=== PATIENT | female | born 1960 | race Caucasian/White ===

== ENCOUNTER 2016-12-14 06:45 | Emergency (ER) | payer OTHER ==
[~2016-12-14] VITALS: Ht 162.6 cm; Wt 70.0 kg
[2016-12-14] MEDS ORDERED: SOD CHLORIDE 0.9% 1,000 ML IV STA (06:47)
[2016-12-14] MEDS ORDERED: ONDANSETRON 4 MG INJ IV STA (06:47)
[2016-12-14 06:50] VITALS: Ht 162.6 cm; Wt 70.0 kg
[2016-12-14 07:22] LABS: BASOPHILS % 0.4 % (0.0-2.0); EOSINOPHILS # 0.1 10^3/ul (0.0-0.5); EOSINOPHILS % 2.3 % (0.0-7.0); HEMATOCRIT 26.3 % (37.0-47.0); HEMOGLOBIN 7.9 g/dl (12.0-16.0); LYMPHOCYTES # 1.3 10^3/ul (0.8-2.9); LYMPHOCYTES % 26.5 % (15.0-51.0); MEAN CORPUSCULAR HEMOGLOBIN 21.4 pg (29.0-33.0); MEAN CORPUSCULAR VOLUME 71.3 fl (82.0-101.0); MEAN PLATELET VOLUME 10.6 fl (7.4-10.4); MONOCYTE # 0.5 10^3/ul (0.3-0.9); MONOCYTES % 10.1 % (0.0-11.0); NEUTROPHIL # 2.9 10^3/ul (1.6-7.5); NEUTROPHILS % 60.3 % (39.0-77.0); PLATELET COUNT 264 10^3/UL (140-415); RED BLOOD COUNT 3.69 10^6/ul (4.20-5.40); RED CELL DISTRIBUTION WIDTH 15.1 % (11.5-14.5); WHITE BLOOD COUNT 4.9 10^3/ul (4.8-10.8)
[2016-12-14 07:46] LABS: ANION GAP 19 (8-16); BLOOD UREA NITROGEN 19 mg/dl (7-20); CALCIUM 9.2 mg/dl (8.4-10.2); CARBON DIOXIDE 24 mmol/L (21-31); CHLORIDE 106 mmol/L (97-110); CREATININE 0.77 mg/dl (0.44-1.00); GLUCOSE 157 mg/dl (70-220); POTASSIUM 3.9 mmol/L (3.5-5.1); SODIUM 145 mmol/L (135-144)
[2016-12-14 08:02] LABS: TROPONIN-I < 0.012 ng/ml (0.00-0.12)
--- NOTE | 2016-12-14 08:08 | ERA ---
ER Documentation Chief Complaint Date/Time DATE: 12/14/16 TIME: 646 Chief Complaint syncopial episode at the gym no ko HPI 56-year-old female presents by ambulance after a syncopal episode. Patient was in her usual state of health until this morning at which time she went to the gym for the first time in some time. She states she worked out briefly, went to the sauna briefly. She then had a syncopal episode. She denied chest pain, palpitations, headache associated with the loss of consciousness. She reported no hemoptysis, pleurisy or shortness of breath. Her syncopal episode was witnessed and she had no seizure activity. 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 Pre-hospital vital signs were reviewed. Pre-hospital diagnostic tests were reviewed. Upon arrival, patient complains of generalized dizziness, but no other acute complaints. ROS All systems reviewed and are negative except as per history of present illness. PMhx/Soc History of Surgery: No Hx Neurological Disorder: No Hx Cardiac Disorders: Yes (svt with ablation) Hx Psychiatric Problems: No Hx Miscellaneous Medical Probl: No Hx Alcohol Use: No Hx Substance Use: No Hx Tobacco Use: No Smoking Status: Never smoker FmHx Noncontributory for chief complaint Physical Exam Vitals Vital Signs Date Time Temp Pulse Resp B/P Pulse Ox O2 Delivery O2 Flow Rate FiO2 12/14/16 07:00 68 12 100/61 97 Room Air 12/14/16 06:50 98.1 70 14 100/58 97 Physical Exam GENERAL: Patient is pale but otherwise in no distress HEENT: Pupils equal, round, and reactive to light. EOMI. There is no scleral icterus. NECK: C-spine is soft and supple, there is no meningismus. There is no cervical lymphadenopathy. LUNGS: Clear to auscultation bilaterally. There are no rales, wheezes or rhonchi. HEART: Regular rate and rhythm, no murmurs, clicks, rubs or gallops. ABDOMEN: Soft, non-tender, non-distended. There are bowel sounds in all four quadrants. No rebound or guarding. EXTREMITIES: There is no peripheral cyanosis or edema. No focal swelling or erythema. NEURO: The patient moves all four extremities with 5/5 strength. Cranial nerves II - XII are intact. Normal gait. Alert and oriented SKIN: There is no apparent rash or petechiae. HEME/LYMPHATIC: There is no evidence of excessive bruising or lymphedema. PSYCHIATRIC: The patient does not appear anxious or depressed. Result Diagram: 12/14/1670412/14/16704 Results 24 hrs Laboratory Tests Test 12/14/16 07:05 White Blood Count 4.910^3/ul Red Blood Count 3.6910^6/ul Hemoglobin 7.9g/dl Hematocrit 26.3% Mean Corpuscular Volume 71.3fl Mean Corpuscular Hemoglobin 21.4pg Mean Corpuscular Hemoglobin Concent 30.0g/dl Red Cell Distribution Width 15.1% Platelet Count 33758^3/UL Mean Platelet Volume 10.6fl Neutrophils % 60.3% Lymphocytes % 26.5% Monocytes % 10.1% Eosinophils % 2.3% Basophils % 0.4% Nucleated Red Blood Cells % 0.0/100WBC Neutrophils # 2.910^3/ul Lymphocytes # 1.310^3/ul Monocytes # 0.510^3/ul Eosinophils # 0.110^3/ul Basophils # 0.010^3/ul Nucleated Red Blood Cells # 0.010^3/ul Sodium Level 145mmol/L Potassium Level 3.9mmol/L Chloride Level 106mmol/L Carbon Dioxide Level 24mmol/L Anion Gap 19 Blood Urea Nitrogen 19mg/dl Creatinine 0.77mg/dl Glucose Level 157mg/dl Calcium Level 9.2mg/dl Troponin I < 0.012ng/ml Current Medications Medications (Trade) Dose Ordered Sig/Varun Route PRN Reason Start Time Stop Time Status Last Admin Dose Admin Sodium Chloride (NS) 1,000 ml @ 1,000 mls/hr Q1H STAT IV 12/14/16 06:47 12/14/16 07:46 DC 12/14/16 07:05 Ondansetron HCl (Zofran Inj) 4 mg ONCE STAT IV 12/14/16 06:47 12/14/16 06:49 DC 12/14/16 07:05 Procedures/MDM Patient was taken to a room, seen and evaluated. Comfort measures were initiated. Diagnostic tests were ordered and reviewed. 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 REEVALUATION: Patient remained hemodynamically stable in the emergency room with no further symptoms. Diagnostic tests were discussed with her and need for transfer were discussed with her. MEDICAL DECISION MAKING: Patient presents after a syncopal episode. Differential diagnosis considered focused on cardiac, neurologic, thromboembolic and other significant concerns for syncope. Diagnostic workup was appreciated. At this time, patient's syncopal evaluation seems to be related to her anemia. I have discussed her previous blood tests with [place], and she had a normal hemoglobin approximately 2 years ago. Patient is amenorrheic and has no symptoms or signs of acute GI blood loss. However, obviously I am concerned about an occult GI bleed as she has no other history of bleeding at this time. Patient will be transferred to [facility] for further diagnostic evaluation , monitoring, serial hemoglobins. Departure Diagnosis: Primary Impression: Syncope Additional Impression: Anemia Condition: KLARISSA Castro Dec 14, 2016 08:08
[2016-12-14 08:17] VITALS: TEMP 98.7
--- NOTE | 2016-12-14 09:17 | RADRPT ---
PROCEDURE: XR Chest. CLINICAL INDICATION: syncope TECHNIQUE: Single frontal view of the chest was obtained COMPARISON: None FINDINGS: Soft tissues project over the medial lung apices, obscuring underlying anatomy and slightly limiting evaluation. Biapical pleural parenchymal scarring is noted. The heart and mediastinum are within normal limits. There are atherosclerotic calcifications of the aortic arch. The lungs are clear. There is no pleural effusion or pneumothorax. There are degenerative changes of the visualized spine. There is suggestion of mild dextroscoliosis of the thoracic spine. IMPRESSION: 1. No evidence of acute cardiopulmonary process. 2. Thoracic aortic atherosclerotic disease. 3. Probable mild dextroscoliosis of the thoracic spine. RPTAT: PP Physician Rizwana Date Time Electronically viewed and signed by Physician Rizwana on 12/14/2016 09:17 /
[2016-12-14 10:12] VITALS: BP 108/98; PULSE 71; RESP 16
== END 2016-12-14 10:25 | disposition short-term general hospital (02) ==
LOC: E/R 06:45
DX: R55 Syncope and collapse (principal); D64.9 Anemia, unspecified
CPT/HCPCS: 71010; 80048; 84484; 85025; 93005; J7030; 36415; 96361; 96374; J2405

== ENCOUNTER 2018-10-03 07:10 | Emergency (ER) | payer OTHER ==
[~2018-10-03] VITALS: Ht 165.1 cm; Wt 73.6 kg
[2018-10-03 07:14] VITALS: Ht 165.1 cm; Wt 73.6 kg
[2018-10-03] MEDS ORDERED: SOD CHLORIDE 0.9% 1,000 ML IV STA (07:28)
[2018-10-03] MEDS ORDERED: METOCLOPRAMIDE 10 MG INJ IV ONE (07:30)
[2018-10-03] MEDS ORDERED: TRAM50TA PO (09:55)
--- NOTE | 2018-10-03 10:12 | ERD ---
ER Documentation Chief Complaint Chief Complaint PT "passed out" at gym x 30 minutes ago HPI This is a 58-year-old female who said she worked out at the gym this morning and went into the sauna. When she got out of the sign she was going back to her locker when she started feeling dizzy and she was syncopal. It was unknown how long she was down. No witnessed seizure according to bystanders. The patient said the exact same thing happened the last time she passed out which she thinks was about a year ago or year and a half. She gone to the gym, sauna, syncopal. The patient was transferred to [place] and she says she does not know what the diagnosis was. She had no preceding chest pain or shortness of breath. She says she did not eat breakfast this morning. Currently she says she feels extremely nauseated and generalized weakness but no focal neurological complaints no headache no chest pain or difficulty breathing ROS All systems reviewed and are negative except as per history of present illness. Medications Home Meds Reported Medications Tramadol Hcl* (Ultram*) 50 Mg Tablet, 50 MG PO NEEDED PRN for PAIN, TAB 10/03/18 Allergies Allergies: Coded Allergies: No Known Allergy (Unverified , 10/03/18) PMhx/Soc History of Surgery: No Hx Neurological Disorder: No Hx Cardiac Disorders: Yes (svt with ablation) Hx Psychiatric Problems: No Hx Miscellaneous Medical Probl: No Hx Alcohol Use: No Hx Substance Use: No Hx Tobacco Use: No FmHx Family History: No coronary disease Physical Exam Vitals Vital Signs Date Temp Pulse Resp B/P (MAP) Pulse Ox O2 O2 Flow FiO2 Time Delivery Rate 10/03/18 103/70 09:26 (81) 111/77 (88) 103/75 (84) 10/03/18 60 16 107/78 97 Room Air 09:20 (88) 10/03/18 97.5 56 12 117/69 96 Room Air 07:20 (85) 10/03/18 97.5 56 12 117/69 96 07:14 (85) Physical Exam Const: Well-developed, well-nourished Head: Atraumatic, normocephalic Eyes: Normal Conjunctiva, PERRLA, EOMI, normal sclera, no nystagmus ENT: Normal External Ears, Nose and Mouth, moist mucus membranes. Neck: Full range of motion. No meningismus, no lymphadenopathy. Resp: Clear to auscultation bilaterally, no wheezing, rhonchi, rales Cardio: Regular rate and rhythm, no murmurs, S1 S2 present Abd: Soft, non tender x 4, non distended. Normal bowel sounds, no gu arding or rebound, no pulsitile abdominal masses or bruits Skin: No petechiae or rashes, no ecchymosis , no maculopapular rash Back: No midline or flank tenderness Ext: No cyanosis, or edema, FROM x 4, normal inspection, neurovascularly intact x 4 Neur: Awake and alert, STR 5/5 x 4, sensation intact x 4, no focal findings, cerebellum intact Psych: Normal Mood and Affect Result Diagram: 10/03/1873810/03/18738 Results 24 hrs Laboratory Tests Test 10/03/18 07:39 10/03/18 09:23 White Blood Count 6.3 10^3/ul Red Blood Count 4.53 10^6/ul Hemoglobin 12.6 g/dl Hematocrit 38.9 % Mean Corpuscular Volume 85.9 fl Mean Corpuscular Hemoglobin 27.8 pg Mean Corpuscular Hemoglobin Concent 32.4 g/dl Red Cell Distribution Width 13.4 % Platelet Count 223 10^3/UL Mean Platelet Volume 10.5 fl Immature Granulocytes % 0.200 % Neutrophils % 52.7 % Lymphocytes % 36.7 % Monocytes % 8.6 % Eosinophils % 1.3 % Basophils % 0.5 % Nucleated Red Blood Cells % 0.0 /100WBC Immature Granulocytes # 0.010 10^3/ul Neutrophils # 3.3 10^3/ul Lymphocytes # 2.3 10^3/ul Monocytes # 0.5 10^3/ul Eosinophils # 0.1 10^3/ul Basophils # 0.0 10^3/ul Nucleated Red Blood Cells # 0.0 10^3/ul Sodium Level 142 mmol/L Potassium Level 3.5 mmol/L Chloride Level 108 mmol/L Carbon Dioxide Level 23 mmol/L Anion Gap 11 Blood Urea Nitrogen 17 mg/dl Creatinine 0.82 mg/dl Est Glomerular Filtrat Rate mL/min > 60 mL/min Glucose Level 159 mg/dl Calcium Level 9.2 mg/dl Troponin I < 0.012 ng/ml Urine Color YELLOW Urine Clarity SLIGHTLY CLOUDY Urine pH 7.0 Urine Specific [place] 1.012 Urine Ketones NEGATIVE mg/dL Urine Nitrite NEGATIVE mg/dL Urine Bilirubin NEGATIVE mg/dL Urine Urobilinogen NEGATIVE mg/dL Urine Leukocyte Esterase 2+ [place]/ul Urine Microscopic RBC 1 /HPF Urine Microscopic WBC 4 /HPF Urine Squamous Epithelial Cells MODERATE /HPF Urine Bacteria FEW /HPF Urine Mucus FEW /HPF Urine Hemoglobin NEGATIVE mg/dL Urine Glucose NEGATIVE mg/dL Urine Total Protein NEGATIVE mg/dl Current Medications Medications Dose Sig/Varun Start Time Status Last (Trade) Ordered Route PRN Stop Time Admin Dose Reason Admin Sodium 1,000 ml @ Q1H STAT 10/03/18 DC 10/03/18 Chloride 1,000 mls/hr IV 07:28 08:00 10/03/18 08:27 10 mg ONCE ONCE 10/03/18 DC 10/03/18 Metoclopramid IV 07:30 08:00 e HCl 10/03/18 07:31 (Reglan) Lidocaine 1 applic ONCE ONCE 10/03/18 DC (Lmx 4% Plus) TOP 10:30 10/03/18 10:30 Procedures/MDM EKG: Rate/Rhythm: Sinus bradycardia heart rate [address] changes QRS, ST, QT: NORMAL TN, QRS, QT] Impression: Sinus bradycardia MR #: [id number] DOS: 10/03/18727 Ordering MD: LIVE GARZA DO Location: E/R Room/Bed: PROCEDURE: CT BRAIN WITHOUT CONTRAST CLINICAL INDICATION: 58-year-old female with syncope and dizziness. TECHNIQUE: The study was performed utilizing GE [id number] Pixels VCT 64-slice CT scanner. Direct axial sections were obtained from the foramen magnum to the vertex without the use of intravenous contrast material. Sagittal and coronal reformations were obtained. One or more of the following dose reduction techniques were utilized: automated exposure control, adjustment of the mA and/or kV according to patient's size or use of iterative reconstruction technique. DICOM images are available. The images were viewed on a PACS work station. CTD/vol = 39.04 mGy; Total Exam DLP = 634.23 mGy.cm. COMPARISON: None. FINDINGS: The ventricles have a normal size, shape and position. There is no evidence for mass effect or midline shift. There are no intracranial areas of abnormal attenuation. There is no evidence for acute intra or extra-axial blood. The bony calvarium is intact. The partially visualized paranasal sinuses and mastoid air cells are without significant abnormal soft tissue. IMPRESSION: Unremarkable noncontrast CT scan of the brain. .Mando Huntley MD, MD Date Time Electronically viewed and signed by .Mando Huntley MD, MD on 10/03/2018 08:00 .M/ CC: LIVE GARZA DO [id number] MR #: [id number] DOS: 10/03/18 0728 Ordering MD: LIVE GARZA DO Location: E/R Room/Bed: PROCEDURE: CHEST - 1 VIEW CLINICAL INDICATION: 58-year-old female with syncope. TECHNIQUE: A single frontal AP semi-erect portable view of the chest was performed. The images were reviewed on a PACS workstation. COMPARISON: Chest x-ray December 14, 2016. FINDINGS: The cardiomediastinal silhouette is prominent. There is a moderate air-filled retrocardiac density suggestive of hiatal hernia. The thoracic aortic arch is calcified. There is a shallow inspiration. There is minimal left basilar subsegmental atelectasis. There is no evidence for focal consolidation. There is no evidence for congestive heart failure. There is no evidence for pneumothorax. Mild degenerative changes are seen within the spine. IMPRESSION: 1. Calcified thoracic aortic arch. 2. Probable moderate hiatal hernia. 3. Shallow inspiration with minimal left basilar subsegmental atelectasis. 4. Degenerative changes within the spine. .Mando Huntley MD, MD Date Time Electronically viewed and signed by .Mando Huntley MD, MD on 10/03/2018 08:04 .M/ CC: LIVE GARZA DO [id number] Patient will be transferred to [place] will speak with her physician shortly Patient's syncopal symptoms are unstable at this time and require inpatient workup. No evidence of PE or dissection at this time but occult ischemia or fatal dysrhythmia cannot be ruled out. Departure Diagnosis: Primary Impression: Syncope Syncope type: unspecified Qualified Codes: R55 - Syncope and collapse Condition: Stable LIVE GARZA DO October 03, 2018 10:12
[2018-10-03] MEDS ORDERED: LIDOCAINE 4% CR TOP ONE (10:30)
[2018-10-03 12:10] VITALS: BP 122/77; PULSE 79; RESP 18
--- NOTE | 2018-10-06 14:50 | RADRPT ---
Vent Rate: 57 bpm RR Interval: 0 msec MS Interval: 154 msec QRS Duration: 90 msec QT Interval: 436 msec QTC Interval: 424 msec P-R-T [place]: 60 - 8 - 32 degrees Sinus bradycardia Nonspecific T wave abnormality Abnormal ECG Electronically Signed By: [facility]
== END 2018-10-03 12:47 | disposition short-term general hospital (02) ==
LOC: E/R 07:10
DX: R55 Syncope and collapse (principal)
CPT/HCPCS: 36415; 70450; 71045; 80048; 81001; 84484; 85025; 93005; 96374; 99285; J2765; J7030